=== PATIENT | female | born 1960 | race Caucasian/White ===

== ENCOUNTER → 2016-09-20 | Outpatient (REF) | payer OTHER ==
[~2016-09-20] MED LIST: CALCIUM GUMMY PO; MULTTAB4 PO; Naproxen PO; PERC5TAB PO; SERT-138 PO
[2016-09-20 13:55] LABS: PROGESTERONE < 0.2 NG/ML
[2016-09-20 13:56] LABS: LUTEINIZING HORMONE 59.7 mIU/mL
[2016-09-20 13:57] LABS: ESTRADIOL < 19.0 PG/ML; FOLLICLE STIMULATING HORMONE 114.4 mIU/mL
[2016-09-20 14:21] LABS: FREE T4 0.93 NG/DL (0.76-1.46)
[2016-09-23 00:06] LABS: ESTRONE SERUM 53 pg/mL (.)
== END ==
LOC: M LAB REF 12:52
PROVIDERS: ATTEND Obstetrics & Gynecology
DX: N95.9 Unspecified menopausal and perimenopausal disorder (principal)

== ENCOUNTER → 2016-10-28 | Outpatient (CLI) | payer OTHER ==
--- NOTE | 2016-10-28 09:52 | REPMRS ---
Patient History The patient states she had a clinical breast exam in 08/2016. Patient is postmenopausal. Family history of breast cancer in maternal grandmother at age 50 or over. Took hormonal contraceptives for 20 years. Taking unspecified hormones beginning at age 55. Digital Woman Screen Mammo: October 28, 2016 - Exam #: [id number] Bilateral CC and MLO view(s) were taken. Technologist: Charity Nix, Technologist Prior study comparison: September 25, 2015, digital woman screen mammo performed at [facility]. September 19, 2014, digital woman screen mammo performed at [facility]. August 16, 2013, bilateral bilat screen digital mammo, performed at [facility] ([facility] FINDINGS: There are scattered fibroglandular densities. There has been no change in the appearance of the mammogram from the prior studies. There is a mild amount of scattered fibroglandular density which is fairly symmetric. There is no interval development of dominant mass, architectural distortion, or clustered microcalcification suggestive of malignancy. ASSESSMENT: BI-RADS/ACR category 1 mammogram. Negative. Recommendation Routine screening mammogram in 1 year (for women over age 40). This mammogram was interpreted with the aid of an FDA-approved computer-aided dectection system. Electronically Signed By: Rodney Bunch MD 10/28/16 0952
== END ==
LOC: M WHC 08:06
PROVIDERS: ATTEND Obstetrics & Gynecology
DX: Z12.31 Encounter for screening mammogram for malignant neoplasm of breast (principal)

== ENCOUNTER → 2017-12-01 | Outpatient (CLI) | payer OTHER | LOC: M WHC 07:55 | DX: Z12.31 Encounter for screening mammogram for malignant neoplasm of breast (principal); Z78.0 Asymptomatic menopausal state; Z92.0 Personal history of contraception; Z92.29 Personal history of other drug therapy; Z80.3 Family history of malignant neoplasm of breast | CPT/HCPCS: 77067 ==

== ENCOUNTER 2018-07-14 19:49 | Emergency (ER) | payer OTHER ==
[~2018-07-14] VITALS: Ht 172.7 cm; Wt 80.9 kg
[2018-07-14] MEDS ORDERED: TRANEXAMIC ACID 100 MG/ML 10ML VIAL ONE (20:45)
[2018-07-14] MEDS ORDERED: OXYMETAZOLINE NASAL SPRAY (AFRIN) ONE (20:45)
[2018-07-14 21:07] LABS: BASO # 0.1 10^3/uL (0.0-0.2); BASO % 0.5 % (0.0-1.0); EOS # 0.1 10^3/uL (0.0-0.50); EOS % 0.5 % (0.0-3.0); HEMATOCRIT 37.2 % (36.0-47.0); HEMOGLOBIN 12.8 g/dl (12.0-15.5); LYMPH # 1.6 10^3/uL (1.5-4.5); LYMPH % 15.9 % (24.0-44.0); MEAN CORPUSCULAR HEMOGLOBIN 30.9 pg (27.0-33.0); MEAN CORPUSCULAR HGB CONC 34.4 g/dl (32.0-36.5); MEAN CORPUSCULAR VOLUME 89.9 fl (80.0-96.0); MONO # 0.7 10^3/uL (0.0-0.8); MONO % 6.6 % (0.0-5.0); NEUTROPHILS # 7.7 10^3/uL (1.8-7.7); NEUTROPHILS % 76.1 % (36.0-66.0); PLATELET COUNT, AUTOMATED 249 10^3/uL (150-450); RED BLOOD COUNT 4.14 10^6/uL (4.00-5.40); WHITE BLOOD COUNT 10.2 10^3/uL (4.0-10.0)
[2018-07-14 21:24] LABS: INR 1.01; PROTHROMBIN TIME 13.4 SECONDS (12.1-14.4)
[2018-07-14 21:25] LABS: PARTIAL THROMBOPLASTIN TIME 30.8 SECONDS (25.4-37.6)
[2018-07-14 22:02] LABS: BLOOD UREA NITROGEN 35 MG/DL (7-18); CALCIUM LEVEL 8.7 MG/DL (8.5-10.1); CARBON DIOXIDE LEVEL 24 MEQ/L (21-32); CHLORIDE LEVEL 107 MEQ/L (98-107); CREATININE FOR GFR 0.58 MG/DL (0.55-1.30); GLOMERULAR FILTRATION RATE > 60.0 (>51); GLUCOSE, FASTING 145 MG/DL (70-100); POTASSIUM SERUM 4.1 MEQ/L (3.5-5.1); SODIUM LEVEL 139 MEQ/L (136-145)
[2018-07-14 23:30] VITALS: BP 131/78
== END 2018-07-14 23:31 | disposition home or self-care (01) ==
LOC: M ED 19:49
DX: R04.0 Epistaxis (principal)

== ENCOUNTER → 2018-12-14 | Outpatient (CLI) | payer OTHER ==
--- NOTE | 2018-12-14 09:52 | REPMRS ---
Patient History The patient states she had a clinical breast exam in 08/2018. Family history of breast cancer at age 50 or over in maternal grandmother. Took hormonal contraceptives for 20 years. Took unspecified hormones beginning at age 55. 3D TOMOSYNTHESIS WAS PERFORMED. [facility] 12.[facility]%. Digital Woman Screen Mammo: December 14, 2018 - Exam #: [id number] Bilateral CC and MLO view(s) were taken. Technologist: Natalie May Technologist Prior study comparison: December 01, 2017, bilateral digital woman screen mammo performed at [facility]. October 28, 2016, digital woman screen mammo performed at [facility]. FINDINGS: The breast tissue is heterogeneously dense. This may lower the sensitivity of mammography. There has been no change in the appearance of the mammogram from the prior studies. There is a moderate amount of residual fibroglandular tissue which is fairly symmetric. There is no interval development of dominant mass, areas of architectural distortion, or clustered microcalcification typical of malignancy. Assessment: BI-RADS/ACR category 1 mammogram. Negative Mammogram. Recommendation Routine screening mammogram in 1 year (for women over age 40). This mammogram was interpreted with the aid of an FDA-approved computer-aided dectection system. Electronically Signed By: Spencer Bernal MD 12/14/18 0951
== END ==
LOC: M WHC 07:53
PROVIDERS: ATTEND Obstetrics & Gynecology
DX: Z12.31 Encounter for screening mammogram for malignant neoplasm of breast (principal); R92.8 Other abnormal and inconclusive findings on diagnostic imaging of breast; Z92.0 Personal history of contraception; Z92.23 Personal history of estrogen therapy; Z80.3 Family history of malignant neoplasm of breast

== ENCOUNTER → 2020-01-03 | Outpatient (CLI) | payer OTHER ==
--- NOTE | 2020-01-03 08:55 | REPMRS ---
Patient History The patient states she had a clinical breast exam in 09/08 Patient is postmenopausal. Family history of breast cancer at age 50 or over in maternal grandmother. Took hormonal contraceptives for 20 years. Took unspecified hormones beginning at age 55. Digital Woman Screen Mammo: January 03, 2020 - Exam #: [id number] Bilateral CC and MLO view(s) were taken. Technologist: Hellen Mike, Technologist Prior study comparison: December 14, 2018, bilateral digital woman screen mammo performed at [facility]. December 01, 2017, bilateral digital woman screen mammo performed at [facility]. October 28, 2016, digital woman screen mammo performed at [facility]. FINDINGS: There are scattered fibroglandular densities. The [employer] volumetric breast density category is:B. There has been no change in the appearance of the mammogram from the prior studies. There is a mild amount of scattered fibroglandular density which is fairly symmetric. There is no interval development of dominant mass, architectural distortion, or grouped microcalcification suggestive of malignancy. 3-D tomosynthesis shows no additional findings. Assessment: BI-RADS/ACR category 1 mammogram. Negative Mammogram. Recommendation Routine screening mammogram of both breasts in 1 year (for women over age 40). This patient's Lifetime Breast Cancer Risk is estimated at 11.8 %. This mammogram was interpreted with the aid of an FDA-approved computer-aided dectection system. Electronically Signed By: Rodney Bunch MD 01/03/20 0855
== END ==
LOC: M WHC 06:31
PROVIDERS: ATTEND Obstetrics & Gynecology
DX: Z12.31 Encounter for screening mammogram for malignant neoplasm of breast (principal); Z80.3 Family history of malignant neoplasm of breast

== ENCOUNTER → 2020-12-04 | Outpatient (CLI) | payer OTHER ==
--- NOTE | 2020-12-04 08:28 | REP ---
INDICATION: F/U THYROID CYST. COMPARISON: 12/04/2019 TECHNIQUE: Real-time sonographic evaluation of the thyroid gland with Doppler FINDINGS: The right lobe of the thyroid gland measures 4.6 x 1.7 x 1.8 cm and the left lobe measures 4.1 x 1.3 x 1.3 cm. The isthmus measures 1.6 mm. There is a 2 mm sized nodule in the superior pole which is hypoechoic and possibly cystic. It is too small for precise sonographic evaluation. It has an unchanged appearance compared to the prior exam. IMPRESSION: No significant change from the prior exam. Findings as described above. <Electronically signed by Stephane Vasquez > 12/04/20 0806
== END ==
LOC: M RAD 07:11
PROVIDERS: ATTEND Internal Medicine
DX: E04.1 Nontoxic single thyroid nodule (principal)

== ENCOUNTER → 2021-02-15 | Outpatient (CLI) | payer OTHER | LOC: M WHC 07:52 | PROVIDERS: ATTEND Obstetrics & Gynecology | DX: Z12.31 Encounter for screening mammogram for malignant neoplasm of breast (principal); Z13.820 Encounter for screening for osteoporosis; Z80.3 Family history of malignant neoplasm of breast; M85.851 Other specified disorders of bone density and structure, right thigh ==

== ENCOUNTER → 2022-02-17 | Outpatient (CLI) | payer OTHER | LOC: M WHC 07:19 | PROVIDERS: ATTEND Obstetrics & Gynecology | DX: Z12.31 Encounter for screening mammogram for malignant neoplasm of breast (principal) ==

== ENCOUNTER → 2022-12-23 | Outpatient (CLI) | payer OTHER | LOC: M RAD 07:57 | PROVIDERS: ATTEND Internal Medicine | DX: E04.1 Nontoxic single thyroid nodule (principal) ==

== ENCOUNTER → 2023-04-14 | Outpatient (CLI) | payer OTHER | LOC: M WHC 08:21 | PROVIDERS: ATTEND Obstetrics & Gynecology | DX: Z12.31 Encounter for screening mammogram for malignant neoplasm of breast (principal); Z13.820 Encounter for screening for osteoporosis; M85.89 Other specified disorders of bone density and structure, multiple sites ==

== ENCOUNTER 2023-06-21 10:00 | Day surgery (SDC) | payer OTHER ==
[~2023-06-21] VITALS: Ht 167.6 cm; Wt 64.2 kg
[~2023-06-21 10:00] MED LIST changes: +MELO15TA28 PO; +SEMA1.7P SQ; +THERTAB52 PO; +ZOLO100T PO
[2023-06-21] MEDS: NS 1,000 ML IV ONE (10:16)
[2023-06-21] MEDS ORDERED: LIDOCAINE 2% 100MG/5ML SDV (FOR ANES.) As Ordered ONE (11:23)
[2023-06-21] MEDS ORDERED: propofoL 200 MG/20 ML VIAL As Ordered ONE (11:23)
[2023-06-21 12:16] VITALS: TEMP 97.8
[2023-06-21 12:33] VITALS: BP 106/55; O2SAT 97
== END 2023-06-21 12:54 | disposition home or self-care (01) ==
LOC: M OPP 10:00
PROVIDERS: ATTEND Internal Medicine Gastroenterology
DX: Z12.11 Encounter for screening for malignant neoplasm of colon (principal); R12 Heartburn; F41.9 Anxiety disorder, unspecified; F10.10 Alcohol abuse, uncomplicated; Z79.899 Other long term (current) drug therapy